=== PATIENT | female | born 1950 | race Caucasian/White ===

== ENCOUNTER 2018-02-22 07:55 | Day surgery (SDC) | payer BC, MEDICARE ==
[2018-02-22] MEDS ORDERED: Lactated Ringers 1,000 ML IV SCH (08:00)
[2018-02-22] MEDS ORDERED: Sodium Chloride 0.9% 10 ML Syringe FLUSH PRN (08:00)
--- NOTE | 2018-02-22 09:40 | PCM.PN ---
- General Info Date of Service: 02/22/18 - Review of Systems Systems Review Comment:: 67-year-old female referred for surveillance colonoscopy. She has a history of colon polyps and underwent a right hemicolectomy over one year ago for large cecal polyps. These were benign. She feels well at this time. She denies any rectal bleeding or difficulty with bowel movements. I discussed the proposed colonoscopy with the patient. She understands indications options and risks and agrees to proceed. - Patient Data Vitals - Most Recent: Last Vital Signs Temp 97.4 F 02/22/18 08:21 Pulse 61 02/22/18 08:21 Resp 20 02/22/18 08:21 BP 137/76 02/22/18 08:21 Pulse Ox 98 02/22/18 08:21 Weight - Most Recent: 87.543 kg Med Orders - Current: Current Medications Lactated Ringer's (Ringers, Lactated) 1,000 mls @ 125 mls/hr IV ASDIRECTED RORY Last Admin: 02/22/18 08:37 Dose: 125 mls/hr Sodium Chloride (Saline Flush) 10 ml FLUSH ASDIRECTED PRN PRN Reason: Keep Vein Open - Problem List Review Problem List Initiated/Reviewed/Updated: Yes - My Orders Last 24 Hours: My Active Orders 02/22/18 08:00 Patient Status [ADT] Routine Peripheral IV Care [RC] . DIRECTED Verify Patient Consent Obtain [RC] ASDIRECTED Lactated Ringers [Ringers, Lactated] 1,000 ml IV ASDIRECTED Sodium Chloride 0.9% [Saline Flush] 10 ml FLUSH ASDIRECTED PRN Peripheral IV Insertion Adult [OM.PC] Routine - Assessment Assessment:: History of colon polyps - Plan Plan:: Colonoscopy
[2018-02-22] MEDS ORDERED: Propofol 200 MG/20 ML SDV ONE ×2 (09:44→09:47)
[2018-02-22] MEDS ORDERED: Midazolam 1 MG/ML 2 ML SDV ONE ×2 (09:44→09:47)
--- NOTE | 2018-02-22 10:36 | PCM.OPNOTE ---
- General Post-Op/Procedure Note Date of Surgery/Procedure: 02/22/18 Operative Procedure(s): Colonoscopy with polyp removal Findings: Small transverse colon polyp Prior right colectomy with normal appearing anastomosis Colon otherwise appears normal Pre Op Diagnosis: History of colon polyps Post-Op Diagnosis: Colon polyp Anesthesia Technique: MAC Primary Surgeon: John Nevarez Pathology: Transverse colon polyp Output, Urine Amount: 0 EBL in mLs: 1 Complications: None Condition: Good Free Text/Narrative:: Intake & Output 02/21/18 02/22/18 02/22/18 22:59 06:59 14:59 Intake Total 800 Balance 800
[2018-02-22 11:17] VITALS: BP 132/77
--- NOTE | 2018-02-22 16:13 | OR ---
Date of Procedure: 02/22/2018 PREOPERATIVE DIAGNOSIS: History of colon polyps. POSTOPERATIVE DIAGNOSES: Colon polyp. OPERATION PERFORMED: Colonoscopy. INDICATIONS FOR SURGERY: This 67-year-old female has a history of colon polyps. She underwent a right hemicolectomy approximately a year and a half ago for large cecal polyps. She is referred for surveillance exam. FINDINGS: In the distal transverse colon, the patient had one small polyp approximately 4 mm in size. It was sessile in configuration. The remainder of the colon and rectum appeared normal. DESCRIPTION OF PROCEDURE: The patient was taken to the operating room. She was given intravenous sedation and with her in the left lateral decubitus position, digital rectal exam was performed showing no rectal masses. The Olympus colonoscope was inserted into the rectum. Retroflexed examination of the rectal canal was performed. The scope was then carefully advanced under direct visualization through the entire length of the colon until the anastomosis was identified. The anastomosis appeared normal as did the just the portion of the small bowel visualized in this region. The scope was then slowly withdrawn sequentially re-examining the colonic segments. In the distal transverse colon, the above-described small polyp was identified and this was removed grossly in its entirety with multiple bites of the biopsy forceps. This examination was then continued and no further abnormalities were noted. After the exam was completed, the scope was removed and the patient was taken from the operating room in satisfactory condition. ESTIMATED BLOOD LOSS: 1 mL. COMPLICATIONS: None. PROGNOSIS: Good. SHARI Nevarez MD /[id number]
== END 2018-02-22 11:45 | disposition home or self-care (01) ==
LOC: LL.SDS 07:55
PROVIDERS: ATTEND Surgery
PROC: 0DBL8ZZ Excision of Transverse Colon, Via Natural or Artificial Opening Endoscopic (ICD-10-PCS; principal; 2018-02-22)
DX: Z86.010 Personal history of colon polyps (principal); D12.3 Benign neoplasm of transverse colon; Z98.0 Intestinal bypass and anastomosis status; Z12.31 Encounter for screening mammogram for malignant neoplasm of breast
CPT/HCPCS: 00811; 77067; 88305; J2250; J2704; J7120